=== PATIENT | male | born 1950 | race Caucasian/White ===

== ENCOUNTER → 2016-10-16 | Outpatient (CLI) | payer OTHER ==
[~2016-10-16] MED LIST: ASPI81TA28 PO; CHOLCAP5 PO; CMD10 PO; HYDR-389 PO; LOSA1TAB PO; MULT-1027 PO; OMEG10007 PO; PARO1TAB27 PO; ROSU5TAB PO; TMB100 PO; TPRSR25 PO; WARF7.5T PO
[2016-10-16 12:20] LABS: BASO % 0.4 %; BASO ABS # 0.02 K/uL (0-0.2); COMPLETE YES; EOS % 3.3 %; IG% 0.2 %; LYMPH % 19.3 %; LYMPH ABS # 0.87 K/uL (1.2-3.4); MEAN CORPUSCULAR HEMOGLOBIN 31.7 pg (25-34); MEAN CORPUSCULAR HGB CONC 35.2 g/dl (32-36); MEAN PLATELET VOLUME 11.2 fL (7.4-10.4); MONO % 10.4 %; NEUT % 66.4 %; PLATELET COUNT 202 K/uL (130-400); RED BLOOD COUNT 4.89 M/uL (4.7-6.1); WHITE BLOOD COUNT 4.51 K/uL (4.8-10.8)
[2016-10-16 13:18] LABS: ESTIMATED AVERAGE GLUCOSE 117 mg/dl; HA1C FLAG Normal (Normal)
[2016-10-16 17:27] LABS: BLOOD UREA NITROGEN 17 mg/dl (7-18); BUN/CREATININE RATIO 16.7 (10-20); CALCIUM 9.5 mg/dl (8.5-10.1); CARBON DIOXIDE 26 mmol/L (21-32); CHLORIDE 104 mmol/L (98-107); GLUCOSE 98 mg/dl (70-99); POTASSIUM 4.4 mmol/L (3.5-5.1); SODIUM 139 mmol/L (136-145)
[2016-10-16 17:45] LABS: ALB/GLOB RATIO 1.1 (0.9-2); ALKALINE PHOSPHATASE 70 U/L (45-117); ALT/SGPT 38 U/L (12-78); AST/SGOT 26 U/L (15-37); CHOLESTEROL 189 mg/dl (0-200); CHOLESTEROL/HDL RATIO 3.9; HDL CHOLESTEROL 49 mg/dl; LDL CHOLESTEROL CALCULATED 117 mg/dl; TRIGLYCERIDES 117 mg/dl (0-150); VERY LOW DENSITY LIPOPROT CALC 23 mg/dl
--- NOTE | 2016-10-21 10:02 | CODING QUERY MEDICAL NECESSITY ---
SUPPORTING DIAGNOSIS NEEDED A supporting diagnosis is required for the test/procedure performed on this patient in order for us to be reimbursed by the patient's insurance. Please provide a supporting diagnosis for the following test/procedure listed below next to the test name along with your signature. *If there is no additional diagnosis for this patient that would support the following test/procedure please document that below next to the test/procedure. Test(s)/Procedure(s) that require a supporting diagnosis: * VIT D 25 HYDROXY DIAGNOSIS: * DOS: 10/16/16 Provider Signature: Date: Thank you [facility] Once completed, please kindly fax back to [phone] For questions please call [phone]
== END | disposition home or self-care (01) ==
LOC: C.LAB1850 10:57
PROVIDERS: ATTEND Internal Medicine
DX: R53.83 Other fatigue (principal); R94.6 Abnormal results of thyroid function studies; I10 Essential (primary) hypertension; R73.01 Impaired fasting glucose; E55.9 Vitamin D deficiency, unspecified

== ENCOUNTER → 2016-11-07 | Outpatient (CLI) | payer OTHER ==
--- NOTE | 2016-11-11 06:15 | MYOCARDIAL PERFUSION SCAN ---
ORDERING PHYSICIAN: Lucas Lane MD. PRIMARY PHYSICIAN: Leigha Amaya MD. CLINCIAL HISTORY: Shortness of breath. COMPARISON: None. EXERCISE STRESS TEST: The patient exercised for 7 minutes 26 seconds on a Missael protocol achieving a peak heart rate of 75 % maximum predicted heart rate. Appropriate blood pressure response (resting BP 132/82, peak BP 167/72). Baseline ECG showed sinus rhythm with incomplete left bundle-branch block and nonspecific inferior T-wave abnormalities. During exercise, the patient developed rate-related left bundle-branch block with repolarization abnormalities including inferior T-wave inversions and some degree of dynamic inferior ST depression which resolved during recovery. No ectopy or dysrhythmias noted. No chest pain. TECHNIQUE: For the stress portion of the study, 33.4 mCi of technetium 99m Cardiolite IV was injected at 1:55 p.m. on 11/07/2016. Fifteen minutes following the injection, imaging of the heart was performed in multiple projections. For the rest portion of the study, 10.5 mCi of technetium 99m Cardiolite was injected IV at noon. One hour following the injection, imaging of the heart was performed in the same projections. FINDINGS: Raw images showed no significant motion artifact. No increase in lung uptake. The short axis, vertical long axis, and horizontal long axis images were reviewed in detail. There was a small mid-apical defect seen on the rest images only which was felt to be artifactual. No perfusion defects on the stress images or gated images. Thus, no evidence of infarct or ischemia. WALL MOTION: Normal left ventricular size and systolic function (calculated ejection fraction 58%). No regional wall motion abnormalities. IMPRESSION: 1. Negative myocardial perfusion scan for myocardial infarction or ischemia at submaximal heart rate (75% maximum predicted heart rate). 2. Indeterminate ECG portion of exercise treadmill test due to development of rate-related left bundle-branch block with associated repolarization abnormalities. 3. Mildly blunted heart rate and appropriate blood pressure response to exercise. 4. Good exercise tolerance. [place] [employer] functional class I. 10 MET workload. 5. Normal left ventricular size and systolic function (EF 58%). No regional wall motion abnormalities. MTDD
== END | disposition home or self-care (01) ==
LOC: C.NUCL 11:04
PROVIDERS: ATTEND Internal Medicine Cardiovascular Disease
DX: I48.91 Unspecified atrial fibrillation (principal); R06.02 Shortness of breath

== ENCOUNTER → 2017-03-13 | Outpatient (CLI) | payer OTHER ==
[2017-03-13 14:57] LABS: BASO % 0.4 %; BASO ABS # 0.02 K/uL (0-0.2); COMPLETE YES; EOS % 0.2 %; HEMATOCRIT 41.9 % (42-52); IG% 0.2 %; LYMPH % 12.7 %; LYMPH ABS # 0.57 K/uL (1.2-3.4); MEAN CORPUSCULAR HEMOGLOBIN 29.6 pg (25-34); MEAN CORPUSCULAR HGB CONC 33.7 g/dl (32-36); MEAN PLATELET VOLUME 11.1 fL (7.4-10.4); MONO % 15.3 %; NEUT % 71.2 %; PLATELET COUNT 130 K/uL (130-400); RED BLOOD COUNT 4.76 M/uL (4.7-6.1)
[2017-03-13 15:00] LABS: URINE APPEARANCE CLEAR (CLEAR); URINE COLOR DK YELLOW; URINE EPITHELIAL CELL AUTO >30 /lpf (0-5); URINE NITRITE NEG (NEG); URINE SPECIFIC GRAVITY 1.027 (1.000-1.030); UROBILINOGEN NEG (NEG); ZZUR CULT IF INDIC CLEAN CATCH NO
[2017-03-13 15:14] LABS: MANUAL MICROSCOPIC REQUIRED? NO; REVIEW REQ? NO
[2017-03-13 15:16] LABS: URINE BILIRUBIN NEG (NEG)
== END | disposition home or self-care (01) ==
LOC: C.LAB1850 12:27
PROVIDERS: ATTEND Internal Medicine
DX: R50.9 Fever, unspecified (principal); R31.9 Hematuria, unspecified

== ENCOUNTER → 2017-04-14 | Outpatient (CLI) | payer OTHER ==
[2017-04-14 15:39] LABS: MANUAL MICROSCOPIC REQUIRED? NO; URINE APPEARANCE SL CLOUDY (CLEAR); URINE BILIRUBIN NEG (NEG); URINE COLOR AMBER; URINE NITRITE NEG (NEG); URINE PH 5.5 (4.5-7.5); URINE SPECIFIC GRAVITY >= 1.030 (1.000-1.030); UROBILINOGEN NEG (NEG)
[2017-04-14 15:41] LABS: REVIEW REQ? YES
[2017-04-14 15:51] LABS: URINE EPITHELIAL CELL AUTO 0-5 /lpf (0-5)
[2017-04-14 15:52] LABS: ZZUR CULT IF INDIC CLEAN CATCH NO
== END | disposition home or self-care (01) ==
LOC: C.LAB1850 10:06
PROVIDERS: ATTEND Internal Medicine
DX: R31.9 Hematuria, unspecified (principal)

== ENCOUNTER → 2017-04-27 | Outpatient (CLI) | payer OTHER ==
[2017-04-27 15:10] LABS: MANUAL MICROSCOPIC REQUIRED? NO; REVIEW REQ? NO; URINE APPEARANCE CLEAR (CLEAR); URINE BILIRUBIN NEG (NEG); URINE COLOR YELLOW; URINE EPITHELIAL CELL AUTO 0-5 /lpf (0-5); URINE NITRITE NEG (NEG); URINE SPECIFIC GRAVITY 1.012 (1.000-1.030); UROBILINOGEN NEG (NEG); ZZUR CULT IF INDIC CLEAN CATCH NO
== END | disposition home or self-care (01) ==
LOC: C.LAB1850 13:00
PROVIDERS: ATTEND Internal Medicine
DX: R31.9 Hematuria, unspecified (principal)

== ENCOUNTER → 2017-06-23 | Outpatient (CLI) | payer OTHER ==
[~2017-06-23] VITALS: Ht 176.5 cm; Wt 129.4 kg
[2017-06-23 14:52] VITALS: BP 148/87; PULSE 75; Ht 176.5 cm; Wt 129.4 kg
== END | disposition home or self-care (01) ==
LOC: C.NEUR 14:12
PROVIDERS: ATTEND Internal Medicine Pulmonary Disease
DX: G47.30 Sleep apnea, unspecified (principal)

== ENCOUNTER → 2017-11-27 | Outpatient (CLI) | payer OTHER ==
[2017-11-27 12:04] LABS: BASO % 0.7 %; BASO ABS # 0.03 K/uL (0-0.2); EOS % 3.2 %; EOS ABS # 0.14 K/uL (0-0.5); HEMATOCRIT 43.3 % (42-52); HEMOGLOBIN 14.9 g/dL (14.0-18.0); IG# 0.01 K/uL (0.00-0.02); LYMPH ABS # 1.27 K/uL (1.2-3.4); MEAN CELL VOLUME 91.2 fL (80-100); MEAN CORPUSCULAR HEMOGLOBIN 31.4 pg (25-34); MEAN CORPUSCULAR HGB CONC 34.4 g/dl (32-36); MEAN PLATELET VOLUME 11.3 fL (7.4-10.4); MONO % 10.7 %; MONO ABS # 0.47 K/uL (0.11-0.59); NEUT % 56.2 %; NEUT ABS # 2.46 K/uL (1.4-6.5); PLATELET COUNT 212 K/uL (130-400); RED CELL DISTRIBUTION WIDTH CV 13.9 % (11.5-14.5); RED CELL DISTRIBUTION WIDTH SD 46.1 fL (36.4-46.3); WHITE BLOOD COUNT 4.38 K/uL (4.8-10.8)
[2017-11-27 12:19] LABS: ALBUMIN 3.8 gm/dl (3.4-5.0); ALT/SGPT 29 U/L (12-78); AST/SGOT 25 U/L (15-37); BLOOD UREA NITROGEN 14 mg/dl (7-18); CALCIUM 8.9 mg/dl (8.5-10.1); CARBON DIOXIDE 28 mmol/L (21-32); CHOLESTEROL 156 mg/dl (0-200); GLUCOSE 100 mg/dl (70-99); POTASSIUM 4.2 mmol/L (3.5-5.1); SODIUM 139 mmol/L (136-145)
[2017-11-27 12:28] LABS: ALKALINE PHOSPHATASE 71 U/L (45-117); LDL CHOLESTEROL CALCULATED 95 mg/dl; TOTAL PROTEIN 7.4 gm/dl (6.4-8.2)
[2017-11-27 12:36] LABS: HEMOGLOBIN A1C 5.5 % (4.5-5.6)
== END | disposition home or self-care (01) ==
LOC: C.LAB1850 10:12
PROVIDERS: ATTEND Internal Medicine
DX: I48.91 Unspecified atrial fibrillation (principal); I10 Essential (primary) hypertension; E78.5 Hyperlipidemia, unspecified; E55.9 Vitamin D deficiency, unspecified; R73.03 Prediabetes

== ENCOUNTER 2018-01-15 01:56 | Emergency (ER) | payer OTHER ==
[~2018-01-15] VITALS: Ht 175.3 cm; Wt 134.4 kg
[2018-01-15 01:58] VITALS: TEMP 36.7; Ht 175.3 cm; Wt 134.4 kg
[2018-01-15 02:23] VITALS: O2SAT 97
[2018-01-15] MEDS ORDERED: LORAZEPAM 2 MG/ML 1 ML VIAL IV STA (02:30)
[2018-01-15] MEDS ORDERED: LOSA50TA6 PO (02:32)
[2018-01-15] MEDS ORDERED: FLEC150T PO (02:33)
--- NOTE | 2018-01-15 02:33 | EMERGENCY ROOM VISIT NOTE ---
History Report prepared by Shani: Sadie Small Under the Supervision of: Dr. Jacinda Marquez D.O. First contact with patient: 02:08 Chief Complaint: CHEST PAIN Stated Complaint: CHEST TIGHTNESS Nursing Triage Summary: Patient reports he put a prescribed cream on his groin for a rash and approx 1 hour later states "I got all hot and got this tightness in my chest." Patient has hx A-fib. History of Present Illness The patient is a 67 year old male who presents to the Emergency Room with complaints of episodic chest pain at 0130 this morning. The patient states that he has a history of atrial fibrillation. He notes that he felt like he was going into atrial fibrillation shortly after applying Triamcinolone cream for jock itch. He was recently prescribed this medication January 11, 2018. He reports chest tightness, increased warmth, and a strange taste in his mouth. He notes that he had right cataract surgery January 05, 2018 and can hardly see. Per , the patient has been grouchy and complaining of inability to see. He notes that he recently followed up with his eye doctor yesterday and they dilated his right eye again. He notes that he has been sitting around more often than normal. He has a history of anxiety attacks. He regularly takes Paxil. He states that he feels tense. He denies any leg swelling. Source of History: patient, spouse/significant other Onset: 0130 this morning Position: chest Quality: other (tightness) Timing: other (episodic ) Note: He notes increased warmth, tenseness, and strange taste. He denies any leg swelling. Review of Systems See HPI for pertinent positives & negatives. A total of 10 systems reviewed and were otherwise negative. Past Medical & Surgical Medical Problems: (1) Atrial fibrillation with RVR (2) Diverticulosis Colon (W/O Ment Of Hemorrhage) (3) Epistaxis (4) Fever (5) Hypertension Nos (6) Poorly-controlled hypertension (7) Transient atrial fibrillation (8) Vertigo (9) Viral illness Surgical Problems: (1) History of right cataract surgery Family History Heart disease Hypertension Lung disease Social History Smoking Status: Former Smoker Smokeless Tobacco Use: No Alcohol Use: none Drug Use: none Marital Status: Housing Status: lives with significant other Occupation Status: unemployed Current/Historical Medications Scheduled Aspirin (Aspirin Ec), 81 MG PO DAILY Cholecalciferol (Vitamin D3), 5,000 UNITS PO DAILY Fish Oil ([place]-3), 1,200 MG PO DAILY Flecainide Acetate (Flecainide Acetate), 150 MG PO DAILY Hydroxyzine Hcl (Atarax), 10 MG PO DAILY Losartan Potassium (Cozaar), 50 MG PO DAILY Metoprolol Succinate (Metoprolol Succinate ER), 25 MG PO QAM Multiple Vitamin (Multi Vitamin), 1 TAB PO DAILY Paroxetine (Paxil), 20 MG PO DAILY Rosuvastatin Calcium (Crestor), 5 MG PO DAILY Warfarin Sod (Coumadin), 10 MG PO 2XWK Warfarin Sodium (Coumadin), 7.5 MG PO 5XWK Allergies Coded Allergies: Lisinopril (Verified Adverse Reaction, Intermediate, COUGH, 01/15/18) Physical Exam Vital Signs Date Time Temp Pulse Resp B/P (MAP) Pulse Ox O2 Delivery O2 Flow Rate FiO2 01/15/18 03:37 60 15 139/85 95 01/15/18 03:00 60 16 130/83 93 01/15/18 02:30 60 14 165/111 94 01/15/18 02:23 97 Room Air 01/15/18 02:20 60 01/15/18 02:07 60 16 188/101 95 01/15/18 02:06 97 Room Air 01/15/18 01:58 36.7 75 20 156/101 94 Room Air Physical Exam General: Appears anxious HEENT: Head - normocephalic and atraumatic Pupils are equal, round, and reactive to light. Extraocular eye muscles are intact, and sclera are anicteric. Right eye: mild scleral injection, obvious cataract surgery. Nose - moist nasal mucosa without discharge. Mouth - moist buccal mucosa. Oropharynx is nonerythematous and there is no tonsillar exudate or edema noted. Neck: Supple; no JVD, nuchal rigidity, cervical lymphadenopathy. Heart: Regular rate and rhythm. There is a normal S1 and S2 with no murmurs, clicks, or gallops appreciated. Lungs: Clear to auscultation bilaterally with no wheezes, rales, or rhonchi. Abdomen: Soft, completely nontender, nondistended, with good bowel sounds. There are no palpable pulsatile masses or hepatosplenomegaly. There is no guarding, rigidity, or rebound noted. Extremities: No evidence of cyanosis, clubbing, or edema. There are easily palpable peripheral pulses. Skin: warm and dry with good turgor and no rashes. Medical Decision & Procedures Laboratory Results 01/15/18 02:14 01/15/18 02:14 Test 01/15/18 02:14 Red Blood Count 4.86 M/uL (4.7-6.1) Mean Corpuscular Volume 90.5 fL (80-100) Mean Corpuscular Hemoglobin 31.7 pg (25-34) Mean Corpuscular Hemoglobin Concent 35.0 g/dl (32-36) RDW Standard Deviation 45.0 fL (36.4-46.3) RDW Coefficient of Variation 13.5 % (11.5-14.5) Mean Platelet Volume 10.9 fL (7.4-10.4) Anion Gap 2.0 mmol/L (3-11) Est Creatinine Clear Calc Drug Dose 78.2 ml/min Estimated GFR () 69.5 Estimated GFR (Non- 59.9 BUN/Creatinine Ratio 10.6 (10-20) Calcium Level 8.6 mg/dl (8.5-10.1) Total Bilirubin 0.3 mg/dl (0.2-1) Aspartate Amino Transf (AST/SGOT) 32 U/L (15-37) Alanine Aminotransferase (ALT/SGPT) 43 U/L (12-78) Alkaline Phosphatase 95 U/L (45-117) Troponin I < 0.015 ng/ml (0-0.045) Total Protein 7.6 gm/dl (6.4-8.2) Albumin 3.6 gm/dl (3.4-5.0) Globulin 4.0 gm/dl (2.5-4.0) Albumin/Globulin Ratio 0.9 (0.9-2) Thyroid Stimulating Hormone (TSH) 4.910 uIu/ml (0.300-4.500) Laboratory results per my review. Medications Administered Medications (Trade) Dose Ordered Sig/Bev Route Start Time Stop Time Status Last Admin Dose Admin Lorazepam (Ativan Inj) 1 mg NOW STAT IV 01/15/18 02:30 01/15/18 02:31 DC 01/15/18 02:38 1 MG Procedure 0230: Ordered Ativan 1 mg IV ECG Per My Interpretation Indication: chest pain Rate (beats per minute): 88 Rhythm: other (atrial-paced rhythm ) Findings: LBBB, nonspecific-ST abn, no ectopy Change: no significant change (when compared to 03/10/2017) ED Course 0217: Past medical records reviewed. The patient was evaluated in room B10. A complete history and physical exam was performed. IV lock was established. 0230: Ordered Ativan 1 mg IV 0340: I reassessed the patient at this time. His repeat blood pressure was 139/ 85, which he states is normal for him. He feels much better. He firmly believes this was a panic attack. I discussed the results and treatment plan with the patient. I answered all pertaining questions that he had. He expressed understanding and verbalized agreement. The patient will be discharged home. Medical Decision The patient is a 67 year old male who presents to the ED with a strange sensation in his chest. Differential diagnosis includes anxiety, cardiac dysrhythmia, and ACS. Lab results showed: Normal renal function. Normal Glucose. Normal LFTs. Slightly elevated TSH 4.9; Negative Troponin. Normal WBC. Stable H&H. This is a 67-year-old male patient presents to the emergency department with a sensation that he might go into atrial fibrillation. The patient recently has been using some steroid cream and wondered if this could have triggered a bout of A. fib. The patient admits to being under significant stress and anxiety mostly related to recent right eye cataract surgery. The patient is feeling well at this time. He was reassured by the fact that his EKG was normal sinus rhythm. Laboratory studies were unremarkable. He was given 1 mg of IV Ativan with significant relief to his symptoms. Medication Reconcilliation Current Medication List: was personally reviewed by me Blood Pressure Screening Patient's blood pressure: Normal blood pressure Impression Primary Impression: Panic attack Scribe Attestation The scribe's documentation has been prepared under my direction and personally reviewed by me in its entirety. I confirm that the note above accurately reflects all work, treatment, procedures, and medical decision making performed by me. Departure Information Dispostion Home / Self-Care Referrals No Doctor, Assigned (PCP) Forms Call Back Authorization, HOME CARE DOCUMENTATION FORM, IMPORTANT VISIT INFORMATION Patient Instructions ED Panic Attack, My [facility] Additional Instructions Rest Limit stress and anxiety Follow up wioth PCP about elevated TSH level. Return to the ER for any worsening symptoms
[2018-01-15 03:05] LABS: HEMOGLOBIN 15.4 g/dL (14.0-18.0); MEAN CELL VOLUME 90.5 fL (80-100); MEAN CORPUSCULAR HEMOGLOBIN 31.7 pg (25-34); MEAN PLATELET VOLUME 10.9 fL (7.4-10.4); PLATELET COUNT 216 K/uL (130-400); RED CELL DISTRIBUTION WIDTH CV 13.5 % (11.5-14.5); WHITE BLOOD COUNT 6.07 K/uL (4.8-10.8)
[2018-01-15 03:13] LABS: ALBUMIN 3.6 gm/dl (3.4-5.0); ALT/SGPT 43 U/L (12-78); AST/SGOT 32 U/L (15-37); BLOOD UREA NITROGEN 13 mg/dl (7-18); CALCIUM 8.6 mg/dl (8.5-10.1); CARBON DIOXIDE 30 mmol/L (21-32); CREATININE 1.23 mg/dl (0.60-1.40); GLUCOSE 99 mg/dl (70-99); POTASSIUM 3.9 mmol/L (3.5-5.1); SODIUM 137 mmol/L (136-145)
[2018-01-15 03:24] LABS: ALKALINE PHOSPHATASE 95 U/L (45-117); TOTAL PROTEIN 7.6 gm/dl (6.4-8.2)
[2018-01-15 03:37] VITALS: BP 139/85; PULSE 60; O2SAT 95
== END 2018-01-15 03:57 | disposition home or self-care (01) ==
LOC: C.EDB 01:57
DX: F41.0 Panic disorder [episodic paroxysmal anxiety] (principal); I48.91 Unspecified atrial fibrillation; I10 Essential (primary) hypertension; Z82.49 Family history of ischemic heart disease and other diseases of the circulatory system; Z83.6 Family history of other diseases of the respiratory system; Z87.891 Personal history of nicotine dependence; Z79.82 Long term (current) use of aspirin; Z79.01 Long term (current) use of anticoagulants; Z79.899 Other long term (current) drug therapy; Z88.8 Allergy status to other drugs, medicaments and biological substances